=== PATIENT | female | born 1990 | race Hispanic/Latino ===

== ENCOUNTER 2024-05-27 18:05 | Inpatient (IN) | payer OTHER ==
[2024-05-27 19:00] VITALS: BMI 35.5
[2024-05-27] MEDS ORDERED: HYDROcodone/Acetaminophen 5/325 mg Tablet PO PRN (20:27)
[2024-05-27] MEDS ORDERED: Misoprostol 200 MCG TAB PR PRN (20:27)
[2024-05-27] MEDS ORDERED: Calcium Gluc 4.6 MEQ/10 ML (100 MG/ML) SLOW IVP PRN (20:27)
[2024-05-27] MEDS ORDERED: Acetaminophen 500 MG TAB PO PRN (20:27)
[2024-05-27] MEDS ORDERED: Promethazine HCl 25 MG/ML VIAL IM PRN (20:27)
[2024-05-27] MEDS ORDERED: Ibuprofen 800 MG TAB PO PRN (20:27)
[2024-05-27] MEDS ORDERED: Zolpidem Tartrate 5 MG TAB PO PRN (20:27)
[2024-05-27] MEDS ORDERED: Lorazepam 2 MG/ML VIAL SLOW IVP PRN (20:27)
[2024-05-27] MEDS ORDERED: Carboprost 250 MCG/ML AMP IM PRN (20:27)
[2024-05-27] MEDS ORDERED: hydrALAZINE 20 MG/ML VIAL SLOW IVP PRN (20:27)
[2024-05-27] MEDS ORDERED: Lidocaine 1% (PF) 30 ML VIAL SC PRN (20:27)
[2024-05-27] MEDS ORDERED: fentaNYL 50 mcg/mL 1 mL Vial SLOW IVP PRN (20:27)
[2024-05-27] MEDS ORDERED: Diphenoxylate HCl/Atropine Tablet PO PRN (20:27)
[2024-05-27] MEDS ORDERED: Oxytocin 30 units/NS 500 ML 500 ML IV SCH (20:30)
[2024-05-27] MEDS: Penicillin G 2.5 MILL.units 2.5 MILL.UNITS in Premix 1 BAG IVPB SCH (21:12)
[2024-05-27] MEDS: Misoprostol 100 MCG TAB VAG SCH (21:14)
[2024-05-27] MEDS: Penicillin G Potassium 5 MILL.UNITS in Sodium Chloride 0.9% 100 ML IVPB SCH (21:22)
[2024-05-27] MEDS: Lactated Ringer's 1,000 ML IV SCH (21:22)
[2024-05-27 21:41] LABS: ALT (SGPT) 16 U/L (8-55); AST (SGOT) 22 U/L (5-34); Albumin 2.9 g/dL (3.5-5.0); Alkaline Phosphatase 175 U/L (40-110); Anion Gap 16 mmol/L (10-20); BUN (Urea Nitrogen) 6 mg/dL (7.0-18.7); Bilirubin, Total 0.5 mg/dL (0.2-1.2); Calc. Creatinine Clearance 181 mL/min (70-130); Calcium 9.4 mg/dL (7.8-10.44); Carbon Dioxide 18 mmol/L (22-29); Chloride 107 mmol/L (98-107); Estimated GFR 122; Globulin 3.9 g/dL (2.4-3.5); Glucose 74 mg/dL (70-105); Potassium 3.6 mmol/L (3.5-5.1); Protein, Total 6.8 g/dL (6.0-8.3); Sodium 137 mmol/L (136-145)
[2024-05-27 21:45] LABS: Hematocrit 40.6 % (34.9-44.5); Hemoglobin 14.5 g/dL (12.0-15.5); Mean Corpuscular HGB CONC 35.7 g/dL (32.0-36.0); Mean Corpuscular Hemoglobin 31.3 pg (27.0-33.0); Mean Corpuscular Volume 87.7 fL (81.6-98.3); Platelet Count 217 10x3/uL (150-450); RBC Distribution Width 13.2 % (11.5-14.5); Red Blood Cell (RBC) Count 4.63 10x6/uL (3.90-5.03); White Blood Cell (WBC) Count 10.7 10x3/uL (3.5-10.5)
[2024-05-27 22:00] LABS: Hep B Surf Ag - L&D Non-Reactive S/CO (NonReactive)
[2024-05-27 22:02] LABS: Syphilis Antibody Nonreactive (Nonreactive); Syphilis Antibody Index 0.07 S/CO (<1.00 Non-Reactive)
[2024-05-28] MEDS: Ondansetron PF 4 MG/2 ML Vial IVP PRN (08:55)
[2024-05-28] MEDS ORDERED: Naloxone HCl 0.4 mg/ml Vial IVP PRN ×2 (09:33)
[2024-05-28] MEDS ORDERED: Moisturizing Cream (Eucerin) 113 GM JAR TOP PRN (09:33)
[2024-05-28] MEDS ORDERED: Lactated Ringer's 500 ML IV PRN (09:33)
[2024-05-28] MEDS ORDERED: diphenhydrAMINE 50 MG/ML VIAL IVP PRN (09:33)
[2024-05-28] MEDS ORDERED: ePHEDrine Sulfate 50 MG/10 ML VIAL SLOW IVP PRN (09:33)
[2024-05-28] MEDS ORDERED: Acetaminophen 325 MG TAB PO PRN (09:33)
[2024-05-28] MEDS ORDERED: Promethazine HCl 25 MG/ML VIAL IM PRN ×2 (09:33→17:04)
[2024-05-28] MEDS ORDERED: Ondansetron PF 4 MG/2 ML Vial IVP PRN ×2 (09:33→17:04)
[2024-05-28] MEDS: fentaNYL/Ropivacaine Epidural 100 ML ONE (09:39)
[2024-05-28] MEDS ORDERED: fentaNYL 2 mcg/Ropivacaine 0.2% Epidural 100 ML CADD EPIDURAL SCH (09:45)
[2024-05-28] MEDS ORDERED: Active EPIDURAL FS SCH (09:45)
[2024-05-28] MEDS: Oxytocin 30 units/NS 500 ML 500 ML IV SCH (15:51)
[2024-05-28] MEDS ORDERED: diphenhydrAMINE 25 MG CAP PO PRN (17:04)
[2024-05-28] MEDS ORDERED: Bisacodyl 10 MG SUPP PR PRN (17:04)
[2024-05-28] MEDS ORDERED: Boostrix 0.5 ML (Tdap) VIAL (>/=7 yrs of age) IM ONE (17:04)
[2024-05-28] MEDS ORDERED: HYDROcodone/Acetaminophen 5/325 mg Tablet PO PRN (17:04)
[2024-05-28] MEDS ORDERED: Preparation H Ointment 28 GM TUBE PR PRN (17:04)
[2024-05-28] MEDS ORDERED: Lanolin Ointment 7 GM TUBE TOP PRN (17:04)
[2024-05-28] MEDS ORDERED: Milk Of Magnesia 30 ML UDCUP PO PRN (17:04)
[2024-05-28] MEDS ORDERED: Benzocaine-Menthol 82.5 ML CAN TOP PRN (17:04)
[2024-05-28] MEDS: HYDROcodone/Acetaminophen 5/325 mg Tablet PO PRN (17:29)
[2024-05-28] MEDS: hydrALAZINE 20 MG/ML VIAL SLOW IVP PRN (17:30)
[2024-05-28] MEDS ORDERED: Labetalol HCl 100 MG/20 ML VIAL SLOW IVP PRN ×2 (17:59)
[2024-05-28] MEDS ORDERED: Calcium Gluc 4.6 MEQ/10 ML (100 MG/ML) SLOW IVP PRN (17:59)
[2024-05-28] MEDS ORDERED: hydrALAZINE 20 MG/ML VIAL SLOW IVP PRN ×2 (17:59)
[2024-05-28] MEDS ORDERED: Lorazepam 2 MG/ML VIAL SLOW IVP PRN (17:59)
[2024-05-28] MEDS: hydrALAZINE 20 MG/ML VIAL ONE (18:36)
[2024-05-28] MEDS: Ferrous Sulfate 325 MG TAB PO SCH (18:36)
[2024-05-28] MEDS: Ibuprofen 800 MG TAB PO SCH (20:10)
[2024-05-28] MEDS: Docusate 100 MG CAP PO SCH (20:11)
[2024-05-28] MEDS ORDERED: Ibuprofen 800 MG TAB PO SCH (22:00)
[2024-05-29] MEDS: Magnesium Sulfate 20 gm/500 ml 20 GM/500 ML BAG IVPB SCH (03:08)
[2024-05-29] MEDS ORDERED: Diphenoxylate HCl/Atropine Tablet PO PRN (09:33)
[2024-05-29] MEDS: Ibuprofen 800 MG TAB PO SCH ×2 (09:51→21:17)
[2024-05-29] MEDS: Prenatal Vitamin 1 TAB PO SCH (09:52)
[2024-05-29] MEDS: Ferrous Sulfate 325 MG TAB PO SCH (10:57)
[2024-05-29] MEDS ORDERED: Pseudoephedrine HCl 30 MG TAB PO PRN (11:02)
[2024-05-29] MEDS: guaiFENesin ER 600 MG TAB PO PRN (12:48)
[2024-05-29] MEDS ORDERED: HYDROcodone/Acetaminophen 5/325 mg Tablet PO PRN ×2 (19:07)
[2024-05-29] MEDS ORDERED: Milk Of Magnesia 30 ML UDCUP PO PRN (19:07)
[2024-05-29] MEDS ORDERED: Lanolin Ointment 7 GM TUBE TOP PRN (19:07)
[2024-05-29] MEDS ORDERED: Preparation H Ointment 28 GM TUBE PR PRN (19:07)
[2024-05-29] MEDS ORDERED: diphenhydrAMINE 25 MG CAP PO PRN (19:07)
[2024-05-29] MEDS ORDERED: Bisacodyl 10 MG SUPP PR PRN (19:07)
[2024-05-29] MEDS ORDERED: Ondansetron PF 4 MG/2 ML Vial IVP PRN (19:07)
[2024-05-29] MEDS ORDERED: hydrALAZINE 20 MG/ML VIAL SLOW IVP PRN (19:07)
[2024-05-29] MEDS ORDERED: Promethazine HCl 25 MG/ML VIAL IM PRN (19:07)
[2024-05-29] MEDS: Docusate 100 MG CAP PO SCH (21:17)
[2024-05-30] MEDS: Ferrous Sulfate 325 MG TAB PO SCH ×2 (03:39→09:23)
[2024-05-30] MEDS: Benzocaine-Menthol 82.5 ML CAN TOP PRN (04:32)
[2024-05-30] MEDS: Prenatal Vitamin 1 TAB PO SCH (08:44)
[2024-05-30] MEDS: Boostrix 0.5 ML (Tdap) VIAL (>/=7 yrs of age) IM ONE (09:23)
[2024-05-30 11:47] VITALS: TEMP 98.1
[2024-05-30 16:07] VITALS: BP 135/83
== END 2024-05-30 17:00 | disposition home or self-care (01) | DRG 807 ==
LOC: CSHLD 18:05 → CSHPP 05-29 20:42
PROVIDERS: ADMIT Student in an Organized Health Care Education/Training Program; ATTEND Student in an Organized Health Care Education/Training Program
PROC: 10E0XZZ Delivery of Products of Conception, External Approach (ICD-10-PCS; principal; 2024-05-28)
PROC: 0HQ9XZZ Repair Perineum Skin, External Approach (ICD-10-PCS; 2024-05-28)
DX: O14.14 Severe pre-eclampsia complicating childbirth (principal); Z37.0 Single live birth; Z3A.37 37 weeks gestation of pregnancy; O99.284 Endocrine, nutritional and metabolic diseases complicating childbirth; E28.2 Polycystic ovarian syndrome; O69.81X0 Labor and delivery complicated by cord around neck, without compression, not applicable or unspecified; O70.0 First degree perineal laceration during delivery
CPT/HCPCS: 36415; 51702; 80053; 85027; 86780; 86850; 86900; 86901; 87340; J0360; J2405; J2540; J2590; J3475; J7120